=== PATIENT | female | born 1970 | race Caucasian/White ===

== ENCOUNTER 2018-05-28 10:42 | Emergency (ER) | payer OTHER ==
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
[2018-05-28 10:48] VITALS: TEMP 98.2; BMI 23.3
[2018-05-28] MEDS ORDERED: KETOROLAC TROMETHAMINE 60 MG/2 ML VIAL IM ONE (11:09)
[2018-05-28] MEDS ORDERED: KETOROLAC TROMETHAMINE 60 MG/2 ML VIAL ONE (11:16)
[2018-05-28 11:43] VITALS: BP 146/92; PULSE 66
--- NOTE | 2018-05-28 15:42 | EKG ---
Test Reason : Blood Pressure : / mmHG Vent. Rate : 068 BPM Atrial Rate : 068 BPM P-R Int : 118 ms QRS Dur : 076 ms QT Int : 402 ms P-R-T Axes : 028 053 038 degrees QTc Int : 427 ms NORMAL SINUS RHYTHM NORMAL ECG NO PREVIOUS ECGS AVAILABLE Confirmed by CORNELL SILVA MD ([id number]) on 05/28/2018 3:41:41 PM Referred By: JULIANNA CABAN Confirmed By:CORNELL SILVA MD
== END 2018-05-28 11:50 | disposition home or self-care (01) ==
LOC: FER 10:42
PROC: 3E0233Z Introduction of Anti-inflammatory into Muscle, Percutaneous Approach (ICD-10-PCS; principal; 2018-05-28)
DX: R07.89 Other chest pain (principal)
CPT/HCPCS: 71046-TC-FY; 93005; 99283-25

== ENCOUNTER 2018-09-11 09:38 | Emergency (ER) | payer OTHER ==
[2018-09-11 09:58] VITALS: BP 150/80; PULSE 74; TEMP 98.1; BMI 23.9
[2018-09-11] MEDS ORDERED: ACETAMINOPHEN 325 MG TABLET (FP) PO ONE (10:08)
[2018-09-11] MEDS ORDERED: ACETAMINOPHEN 325 MG TABLET (FP) ONE (10:11)
--- NOTE | 2018-09-11 10:14 | PDOC ---
History of Present Illness - General Chief Complaint: Blood Pressure Problem Stated Complaint: HIGH BLOOD PRESSURE Time Seen by Provider: 09/11/18 09:40 History Source: Patient Exam Limitations: No Limitations - History of Present Illness Initial Comments: 09/11/18 10:14 HPI 47 YOF with h/o depression on wellbutrin presenting with high blood pressure. She states she has had intermittent elevations with her blood pressure x 1 year , with SBP in the 160s. Last episode was 2 days ago, where she felt headache, flushed feeling, sob took her BP and elevated ~160s. Has seen primary previously , conservative management and no initiation of sx. Today bilateral temporal headache, took nsaid this morning, some relief. She does admit to +stressors including her job and divorce. She has PMD appointment this week in 3 days. Denies fever, chills, chest pain, SOB, palpitation, dizziness, weakness, paresthesias, N, V, D, abdominal pain, bladder and bowel problems, leg swelling , no recent respiratory or GI illnesses. No sick contacts or travel. No new changes in medications. Occasionally uses alcohol, cigarette use. Regular caffeine intake, 1 cup per day , not more than usual. No otc use of herbal supplements or stimulants. No drug use or marijauna use. PMHx: tubo-ovarian tumor s/p removal PShx: b/l salpinectomy, R oophorectomy, cholecystectomy, C section Allergies: NKDA Meds: Wellbutrin, Christina Review of systems Constitutional: no fevers or chills. HEENT: +headache. No congestion. No visual/hearing disturbances. CVS: no cp or syncope. Resp: no sob. No cough. Gastrointestinal: no abdominal pain, nausea or vomiting. Genitourinary: no urinary sx, hematuria. MUSCULOSKELETAL: No joint pain and swelling. No neck or back pain. SKIN: no redness or skin changes, no discharge, no rash. No wounds. Hematologic: no easy bruising/bleeding. NEUROLOGIC: +headache. No dizziness, LOC or altered mental status. No weakness, numbness or tingling. Allergic/Immunologic: no allergies All other systems reviewed and negative, or as documented in HPI. Physical exam: General: Well appearing, awake and alert, NAD. HEENT: NCAT, PERRL, EOMI, clear conjunctiva, anicteric, moist mucus membranes, clear oropharynx, no oral lesions.. Neck: neck supple, FROM Resp: CTAB, normal and even respirations, no respiratory distress CVS: RRR, no murmurs, 2+ peripheral pulses throughout, no peripheral edema Abdomen: soft, NTND, no peritoneal signs. Back: nontender, normal inspection and ROM MSK: no edema, KENNEY x4, ROM intact. No clubbing or cyanosis. normal bulk and tone. Neuro: alert, no focal neuro deficits. Skin: warm and well perfused, cap refill <2 sec, normal color 09/11/18 10:14 Past History - Past Medical History Allergies/Adverse Reactions: Allergies Allergy/AdvReac Type Severity Reaction Status Date / Time No Known Allergies Allergy Verified 09/11/18 09:39 Home Medications: Ambulatory Orders Bupropion HCl [Bupropion Xl] 300 mg PO DAILY 09/11/18 Ibuprofen [Motrin Ib] 600 mg PO ONCE 09/11/18 COPD: No Psychiatric Problems: Yes (anxiety) - Surgical History Cholecystectomy: Yes - Suicide/Smoking/Psychosocial Hx Smoking History: Current some day smoker Have you smoked in the past 12 months: Yes Number of Cigarettes Smoked Daily: 0 Information on smoking cessation initiated: Yes Hx Alcohol Use: Yes (SOCIAL & ON WEEKENEDS) Drug/Substance Use Hx: No *Physical Exam - Vital Signs Last Vital Signs Temp Pulse Resp BP Pulse Ox 98.1 F 74 18 150/80 98 09/11/18 09:39 09/11/18 09:39 09/11/18 09:39 09/11/18 09:39 09/11/18 09:39 Heart Score/ECG Review #1 ECG reviewed & interpreted by me at: 10:15 General ECG Interpretation: Sinus Rhythm, Normal Rate, Normal Intervals 09/11/18 10:18 EKG normal sinus rhythm at 65 bpm, no interval abnormalities, narrow QRS, ST and T wave segments and morphology normal. Medical Decision Making - Medical Decision Making 09/11/18 10:14] vitals reviewed, mild hypertension 150/80, normal HR and respirations, no hypoxia. does have mild SANDOVAL, treat with analgesia appropriately. no neuro deficits, or AMS or s/s to suggest BUNDLE TIER or cardiac pathology asymptomatic HTN, conservative management, +stressors in like screening EKG, EKG normal sinus rhythm, no interval abnormalities, narrow QRS, ST and T wave segments and morphology normal. no e/o LVH or strain pattern no initiation of meds, requires >2 separate instances of BP measurements has close PMD followup in 3 day for clinical recheck. avoid triggers, including foods, salty intake, cigarettes, alcohol, excessive caffeine intake and stress. Pt informed of my clinical impression, treatment recommendations and disposition plan. All questions answered to patient's satisfaction and expressed understanding and comfort with this. Reasons for returning to the ED sooner discussed including new or persistent/worsening symptoms with the patient otherwise, follow up with primary care physician. At the time of discharge, the patient is alert, clinically improved, tolerating po and verbalizes understanding of instructions, satisfied with the care received and felt comfortable with the plan. Patient does not suffer from an acute life- threatening medical condition at this time she is safe for outpatient follow- up. 09/11/18 10:14 09/11/18 10:18 09/11/18 10:18 *DC/Admit/Observation/Transfer Diagnosis at time of Disposition: Hypertension - Discharge Dispostion Disposition: HOME Condition at time of disposition: Good Decision to Admit order: No - Referrals Referrals: Venice Allred [Primary Care Provider] - - Patient Instructions Printed Discharge Instructions: DI for High Blood Pressure, How to Monitor Your Blood Pressure at Home Additional Instructions: 1) Please follow-up with your primary care doctor in the next 1-2 days. Please call tomorrow for for any urgent issues. you should have your primary doctor recheck your blood pressure as this requires separate instances and conservative management prior to initiation of medications, which have large side effect profile 2) You were given a copy of the tests performed today. Please bring the results with you and review them with your primary care doctor. your EKG here was normal 3) If you have any worsening of symptoms or any other concerns please return to the ED immediately. Return if worsening symptoms including fevers, headache, vomiting, visual or hearing disturbances, abdominal pain, chest pain, shortness of breath, syncope, dehydration, inability to take things by mouth/vomiting, altered mental status, or worsening concerning symptoms. avoid triggers, including foods, salty intake, cigarettes, alcohol, excessive caffeine intake and stress. - Post Discharge Activity
--- NOTE | 2018-09-11 17:55 | EKG ---
Test Reason : Blood Pressure : / mmHG Vent. Rate : 065 BPM Atrial Rate : 065 BPM P-R Int : 124 ms QRS Dur : 084 ms QT Int : 416 ms P-R-T Axes : 030 052 044 degrees QTc Int : 432 ms NORMAL SINUS RHYTHM NORMAL ECG WHEN COMPARED WITH ECG OF 28-MAY-2018 11:13, NO SIGNIFICANT CHANGE WAS FOUND Confirmed by CORNELL SILVA MD ([id number]) on 09/11/2018 5:54:56 PM Referred By: CRISELDA ANAYA Confirmed By:CORNELL SILVA MD
== END 2018-09-11 10:25 | disposition home or self-care (01) ==
LOC: FER 09:38
DX: I10 Essential (primary) hypertension (principal); F17.210 Nicotine dependence, cigarettes, uncomplicated; F41.9 Anxiety disorder, unspecified
CPT/HCPCS: 93005; 99281-25

== ENCOUNTER 2020-02-01 19:39 | Emergency (ER) | payer OTHER ==
[2020-02-01 19:45] VITALS: BP 142/96; PULSE 79; TEMP 98; BMI 25.7
[2020-02-01] MEDS ORDERED: predniSONE 20 MG TABLET (UD) PO ONE (20:02)
[2020-02-01] MEDS ORDERED: predniSONE 20 MG TABLET (UD) ONE (20:08)
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
== END 2020-02-01 20:15 | disposition home or self-care (01) ==
LOC: FER 19:39
DX: M54.2 Cervicalgia (principal)
CPT/HCPCS: 99283-25